=== PATIENT | female | born 1990 | race Two or more races ===

== ENCOUNTER 2019-05-10 15:35 | Emergency (ER) | payer BC ==
[2019-05-10 15:41] VITALS: BMI 27.6
--- NOTE | 2019-05-10 15:46 | PDOC ---
Rapid Medical Evaluation Chief Complaint: Cold Symptoms Time Seen by Provider: 05/10/19 15:41 Medical Evaluation: Vital Signs Temp Pulse Resp BP Pulse Ox 98.4 F 131 H 19 131/80 100 05/10/19 15:39 05/10/19 15:39 05/10/19 15:39 05/10/19 15:39 05/10/19 15:39 05/10/19 15:41 This patient had a brief in-person evaluation in triage CC:fever and bodyaches since Wednesday. Also reports bodyaches and pain in throat PE: NAD erythematous pharynx unlabored breathing orders: saline lock, labs, urine hcg This patient will proceed to the ED for further evaluation Discharge Disposition - Diagnosis Fever - Referrals - Patient Instructions - Post Discharge Activity
[2019-05-10] MEDS ORDERED: SODIUM CHLORIDE 0.9% 500 ML INFUS.BAG IV ONE (15:47)
[2019-05-10] MEDS ORDERED: IBUPROFEN 600 MG TABLET (FP) PO ONE ×2 (17:48→17:50)
--- NOTE | 2019-05-10 18:36 | PDOC ---
History of Present Illness - General Chief Complaint: Cold Symptoms Stated Complaint: FEVER/hip pain Time Seen by Provider: 05/10/19 15:41 - History of Present Illness Initial Comments: 05/10/19 18:35 CHIEF COMPLAINT: sore throat, fever HISTORY OF PRESENT ILLNESS: 29 yo F with no PMH presents to ED with fever since Wednesday night. Tmax 104.5 . Denies any recent travel, recent sick contacts. denies vomiting, diarrhea. Sore throat, denies sneezing. No surgical hx. Took Motrin at home every 2-3 hours. 400 mg every 3 hours. No other meds. No recent travel or sick contacts. PAST MEDICAL HISTORY: Denies past medical history FAMILY HISTORY: Denies SOCIAL HISTORY: Denies tobacco, alcohol, illicit drug use. SURGICAL HISTORY: Denies ALLERGIES: No known drug allergies REVIEW OF SYSTEMS General/Constitutional: Fever x 3 days. Denies weakness, weight change. HEENT: Sore throat x 3 days. Denies change in vision. Denies ear pain or discharge. Cardiovascular: Denies chest pain or shortness of breath. Respiratory: Denies cough, wheezing, or hemoptysis. Gastrointestinal: Denies nausea, vomiting, diarrhea or constipation. Denies rectal bleeding. Genitourinary: Denies dysuria, frequency, or change in urination. Musculoskeletal: Denies joint or muscle swelling or pain. Denies neck or back pain. Skin and breasts: Denies rash or easy bruising. Neurologic: Denies headache, vertigo, loss of consciousness, or loss of sensation. PHYSICAL EXAM General Appearance: Well-appearing, appropriately dressed. No apparent distress. HEENT: Erythematous oropharynx. No exudate appreciated. EOMI, PERRLA, normal ENT inspection, normal voice, TMs normal, pharynx normal. No conjunctival pallor. No photophobia, scleral icterus. Neck: Supple. Trachea midline. No tenderness, rigidity, carotid bruit, stridor , lymphadenopathy, or thyromegaly. Respiratory/Chest: Lungs CTAB. No shortness of breath, chest tenderness, respiratory distress, accessory muscle use. No crackles, rales, rhonchi, stridor , wheezing, dullness Cardiovascular: RRR. S1, S2. No JVD, murmur, bradycardia, tachycardia. Vascular Pulses: Dorsalis-Pedis (R): 2+, Dorsalis-Pedis (L): 2+ Gastrointestinal/Abdominal: Normal bowel sounds. Abdomen soft, non-distended. No tenderness or rebound tenderness. No organomegaly, pulsatile mass, guarding , hernia, hepatomegaly, splenomegaly. Lymphatic: No adenopathy, tenderness. Musculoskeletal/Extremities: Normal inspection. FROM of all extremities, normal capillary refill. Pelvis Stable. No CVA tenderness. No tenderness to extremities, pedal edema, swelling, erythema or deformity. Integumentary: Appropriate color, dry, warm. No cyanosis, erythema, jaundice or rash Neurologic: director of professional services II-XII intact. Fully oriented, alert. Appropriate mood/affect. Motor strength 5/5. No appreciable EOM palsy, facial droop or sensory deficit. Past History - Past Medical History Allergies/Adverse Reactions: Allergies Allergy/AdvReac Type Severity Reaction Status Date / Time No Known Allergies Allergy Verified 05/10/19 15:41 Home Medications: Ambulatory Orders Amoxicillin - [Amoxicillin 500mg Capsule -] 500 mg PO BID #20 capsule 05/10/19 Ibuprofen 600 mg PO TID PRN #30 tablet 05/10/19 COPD: No Other medical history: denies - Suicide/Smoking/Psychosocial Hx Smoking History: Never smoked Information on smoking cessation initiated: No Hx Alcohol Use: No Drug/Substance Use Hx: No *Physical Exam - Vital Signs Last Vital Signs Temp Pulse Resp BP Pulse Ox 102.3 F H 125 H 18 124/66 99 05/10/19 17:47 05/10/19 17:47 05/10/19 17:47 05/10/19 17:47 05/10/19 17:47 ED Treatment Course - LABORATORY CBC & Chemistry Diagram: 05/10/19 19:11 05/10/19 19:11 - Medications Given in the ED: ED Medications Discontinued Medications Generic Name Dose Route Start Last Admin Trade Name Freq PRN Reason Stop Dose Admin Ibuprofen 600 mg 05/10/19 17:48 05/10/19 17:51 Motrin - PO 05/10/19 17:49 600 mg ONCE ONE Administration Medical Decision Making - Medical Decision Making 05/10/19 19:02 29 yo F with no PMH presents to ED with fever since Wednesday night. -labs -urine -rapid strep *DC/Admit/Observation/Transfer Diagnosis at time of Disposition: Strep pharyngitis Fever Qualifiers: Fever type: due to other condition Qualified Code(s): R50.81 - Fever presenting with conditions classified elsewhere - Discharge Dispostion Disposition: HOME Condition at time of disposition: Stable Decision to Admit order: No - Prescriptions Prescriptions: Amoxicillin - [Amoxicillin 500mg Capsule -] 500 mg PO BID #20 capsule Ibuprofen 600 mg PO TID PRN #30 tablet PRN Reason: Fever - Referrals - Patient Instructions Printed Discharge Instructions: DI for Strep Throat - Post Discharge Activity Forms/Work/School Notes: Back to Work
[2019-05-10 19:31] LABS: EPI CELLS 1.7 /HPF (0-5/HPF); HYALINE CASTS 3 /lpf (0-8); PH,URINE 5.5 (5.0-8.0); URINE APPEARANCE CLEAR; URINE BACTERIA 23.2 /hpf (NEGATIVE); URINE BILIRUBIN 1+ (NEGATIVE); URINE COLOR DK YELLOW; URINE GLUCOSE (UA) NEGATIVE (NEGATIVE); URINE KETONE 1+ (NEGATIVE); URINE LEUK ESTERASE NEGATIVE (NEGATIVE); URINE NITRITE NEGATIVE (NEGATIVE); URINE PROTEIN NEGATIVE (NEGATIVE); URINE RBC 7 /hpf (0-4); URINE WBC 1 /hpf (0-5)
[2019-05-10 19:32] LABS: BASO % 0.3 % (0-2.0); HEMATOCRIT 42.1 % (32.4-45.2); HEMOGLOBIN 14.4 GM/dL (10.7-15.3); LYMPH % 15.4 % (8-40); MCH 28.8 pg (25.7-33.7); MCHC 34.2 g/dl (32.0-36.0); MEAN CELL VOLUME 84.3 fl (80-96); MEAN PLT VOLUME 8.9 fl (7.5-11.1); MONO % 8.1 % (3.8-10.2); NEUT % 76.2 % (42.8-82.8); PLATELET COUNT 222 K/MM3 (134-434); RDW 13.4 % (11.6-15.6); WHITE BLOOD COUNT 13.6 K/mm3 (4.0-10.0)
[2019-05-10 19:48] LABS: ALBUMIN 4.6 g/dl (3.4-5.0); BILIRUBIN,TOTAL 0.6 mg/dL (0.2-1); BLOOD UREA NITROGEN 13.4 mg/dL (7-18); CALCIUM 9.6 mg/dL (8.5-10.1); CREATININE 0.7 mg/dL (0.55-1.3); TOT PROT 8.2 g/dl (6.4-8.2)
[2019-05-10 20:53] VITALS: BP 108/48; PULSE 76; TEMP 98.5
== END 2019-05-10 21:37 | disposition home or self-care (01) ==
LOC: JER 15:35
PROC: 3E0337Z Introduction of Electrolytic and Water Balance Substance into Peripheral Vein, Percutaneous Approach (ICD-10-PCS; principal; 2019-05-10)
DX: R50.9 Fever, unspecified (principal)
CPT/HCPCS: 36415; 80053; 81003; 84703; 85025; 87086; 87880; 99283-25